=== PATIENT | male | born 1950 | race Caucasian/White ===

== ENCOUNTER 2019-08-02 05:55 | Inpatient (IN) | payer MEDICARE ==
[2019-08-02] VITALS (8 sets, daily range): BP systolic 118–143; BP diastolic 62–74
[~2019-08-02] VITALS: Ht 180.3 cm; Wt 79.1 kg
[~2019-08-02 05:55] MED LIST: ACET-841 PO; ALEV220T26 PO; ASPI1TAB PO; ASPI81TA85 PO; ATOR40TA75 PO; BISO5TAB5 PO; CALC-196 PO; CITRTAB18 PO; CO Q100C10 PO; CO Q200C10 PO; COUM1TAB17 PO; COUM2.5T17 PO; CYAN100050 PO; CYMB60CA3 PO; DIOV320T PO; DULO1CAP6 PO; FISH1360 PO; FISH1CAP23 PO; GLUC1TAB58 PO; LOSA100T8 PO; MAG PO; MULTCAP PO; MULTTAB4 PO; NAPR500T2 PO; OSTETAB13 PO; PANT40IN PO; PERC5TAB12 PO; PROL60SO SC; RANI150T14 PO; RECL5INJ2 IV; SPIR-10 PO; TYLE1000 PO; TYLE325T5 PO; VALS320T3 PO; VITA10002 PO; ZINC PO; [UNRECOGNIZED DRUG - OTHER] PO; reclast IV; vitamin D2 OR
[2019-08-02] MEDS ORDERED: LR 1,000 ML IV ONE (06:00)
[2019-08-02] MEDS ORDERED: BUPIVACAINE HCL 0.25% 30 ML VIAL As Ordered ONE (07:04)
[2019-08-02] MEDS ORDERED: BUPIVACAINE LIPOSOME/PF 1.3% 20ML VIAL (13.3MG/ML)(EXPAREL)(C9290 PER1MG) As Ordered ONE (07:05)
[2019-08-02] MEDS ORDERED: ROCURONIUM BROMIDE 50 MG/5 ML VIAL As Ordered ONE ×3 (08:07→10:50)
[2019-08-02] MEDS ORDERED: MIDAZOLAM INJ 2 MG/2 ML VIAL (J2250) As Ordered ONE (08:07)
[2019-08-02] MEDS ORDERED: dexameTHASONE 4 MG/ML 1ML VIAL (J1100) As Ordered ONE (08:07)
[2019-08-02] MEDS ORDERED: fentaNYL 250 MCG/5 ML INJECTION (J3010) As Ordered ONE (08:07)
[2019-08-02] MEDS ORDERED: ONDANSETRON 4MG/2ML VIAL (J2405) As Ordered ONE (08:07)
[2019-08-02] MEDS ORDERED: PROPOFOL 200 MG/20 ML VIAL As Ordered ONE (08:07)
[2019-08-02] MEDS ORDERED: LIDOCAINE 2% INJ 100 MG/5 ML SDV (FOR ANES.) As Ordered ONE (08:07)
[2019-08-02] MEDS ORDERED: GLYCOPYRROLATE INJ 0.2 MG/ML 2 ML VIAL As Ordered ONE (08:16)
[2019-08-02] MEDS ORDERED: PHENYLephrine HCL 500 MCG/5 ML (100MCG/ML) SYRINGE (J2370) As Ordered ONE ×2 (09:02→09:56)
[2019-08-02] MEDS ORDERED: ePHEDrine SULFATE 25 MG/5 ML(5MG/ML) SYRINGE As Ordered ONE (09:02)
[2019-08-02] MEDS ORDERED: SUGAMMADEX SODIUM 500 MG/5 ML VIAL (BRIDION) As Ordered ONE (10:06)
[2019-08-02] MEDS ORDERED: fentaNYL 100 MCG/2 ML INJECTION (J3010) As Ordered ONE (12:27)
[2019-08-02] MEDS ORDERED: ACETAMINOPHEN 1000MG 100ML IV BTL (OFIRMEV) (J0131 PER 10MG) As Ordered ONE (13:32)
[2019-08-02] MEDS ORDERED: NORCO, ANEXSIA 5/325MG TABLET (HYDROcodone/ACETAMINOPHEN) PO PRN (14:00)
[2019-08-02] MEDS ORDERED: ACETAMINOPHEN TAB 650MG DOSE (2X325MG) PO PRN (14:00)
[2019-08-02] MEDS ORDERED: MORPHINE 4 MG/ML 1ML VIAL/SYRINGE (J2270) IV PRN (14:00)
[2019-08-02] MEDS ORDERED: METOCLOPRAMIDE INJ 10MG/2ML VIAL (J2765) IV PRN (14:00)
[2019-08-02] MEDS ORDERED: ONDANSETRON 4MG/2ML VIAL (J2405) IV PRN ×2 (14:00→14:30)
[2019-08-02] MEDS ORDERED: KETOROLAC 30 MG/ML VIAL (J1885) IV PRN (14:00)
[2019-08-02] MEDS ORDERED: oxyCODONE 5MG TAB PO PRN (14:30)
[2019-08-02] MEDS ORDERED: fentaNYL 100 MCG/2 ML INJECTION (J3010) IV PRN (14:30)
[2019-08-02] MEDS ORDERED: PERCOCET 5MG/325MG TAB PO PRN (14:30)
[2019-08-02] MEDS ORDERED: LR 1,000 ML IV SCH (14:30)
--- NOTE | 2019-08-02 14:39 | REP ---
Clinical: Evaluate for pneumothorax. Comparison: 04/21/2015 Findings: Extensive subcutaneous emphysema noted bilaterally extending from the visualized upper abdomen through the thoracic inlet with findings to suggest pneumoperitoneum. The mediastinum and cardiac silhouette are relatively stable and hiatal hernia is again suggested. The lung jacob demonstrate chronic changes without obvious pneumothorax, consolidation or effusion. Skeletal structures demonstrate osteopenia and degenerative change. Impression: 1. Extensive diffuse subcutaneous emphysema extending into the thoracic inlet. 2. Suspected pneumoperitoneum. 3. No obvious pneumothorax. Electronically Signed by Ja Johnson MD 08/02/2019 02:31 P
[2019-08-02] MEDS: LR 1,000 ML IV SCH ×2 (15:20→21:51)
[2019-08-02] MEDS: DULoxetine 30 MG CAP (CYMBALTA) PO SCH (21:47)
[2019-08-03 02:00] VITALS: BP 135/64
[2019-08-03] MEDS: LR 1,000 ML IV SCH (02:09)
[2019-08-03 06:00] VITALS: BP 149/69
[2019-08-03 06:36] LABS: BASO % 0.2 % (0.0-1.0); EOS # 0.1 10^3/uL (0.0-0.5); EOS % 0.7 % (0.0-3.0); HEMATOCRIT 33.3 % (42.0-52.0); HEMOGLOBIN 10.7 g/dl (13.5-17.5); LYMPH # 1.4 10^3/uL (1.5-5.0); LYMPH % 15.8 % (24.0-44.0); MEAN CORPUSCULAR HEMOGLOBIN 29.5 pg (27.0-33.0); MEAN CORPUSCULAR HGB CONC 32.1 g/dl (32.0-36.5); MEAN CORPUSCULAR VOLUME 91.7 fl (80.0-96.0); MONO # 1.1 10^3/uL (0.0-0.8); MONO % 12.7 % (0.0-5.0); NEUTROPHILS # 6.3 10^3/uL (1.5-8.5); NEUTROPHILS % 70.3 % (36.0-66.0); PLATELET COUNT, AUTOMATED 169 10^3/uL (150-450); RED BLOOD COUNT 3.63 10^6/uL (4.30-6.10); WHITE BLOOD COUNT 8.9 10^3/uL (4.0-10.0)
[2019-08-03 07:01] LABS: ALBUMIN 2.8 GM/DL (3.2-5.2); ALT/SGPT 91 U/L (12-78); BILIRUBIN,TOTAL 0.5 MG/DL (0.2-1.0); BLOOD UREA NITROGEN 15 MG/DL (7-18); CALCIUM LEVEL 7.9 MG/DL (8.8-10.2); CARBON DIOXIDE LEVEL 31 MEQ/L (21-32); CHLORIDE LEVEL 105 MEQ/L (98-107); CREATININE FOR GFR 0.88 MG/DL (0.70-1.30); GLOMERULAR FILTRATION RATE > 60.0 (>42); GLUCOSE, FASTING 104 MG/DL (70-100); POTASSIUM SERUM 4.4 MEQ/L (3.5-5.1); SODIUM LEVEL 138 MEQ/L (136-145); TOTAL PROTEIN 6.3 GM/DL (6.4-8.2)
[2019-08-03] MEDS: hydroCHLOROthiazide 12.5 MG CAPSULE PO SCH (08:20)
[2019-08-03] MEDS: SPIRONOLACTONE 25 MG TAB PO SCH (08:20)
[2019-08-03] MEDS: LOSARTAN 50 MG TAB PO SCH (08:21)
[2019-08-03 10:00] VITALS: BP 118/56
[2019-08-03 14:00] VITALS: BP 150/64
[2019-08-03] MEDS: DULoxetine 30 MG CAP (CYMBALTA) PO SCH (20:08)
[2019-08-03 22:00] VITALS: BP 131/70
[2019-08-04 02:00] VITALS: BP 141/73
[2019-08-04 06:00] VITALS: BP 129/86
--- NOTE | 2019-08-04 07:40 | IPN ---
DATE OF SERVICE: 08/03/2019 HISTORY: The patient is now postop day #1 from a robotic-assisted laparoscopic repair of a large paraesophageal hiatal hernia with the creation of a Jack fundoplication as well. He has generally done quite well overnight. He was up to ambulate once last night. He denies any nausea or vomiting. He is having little discomfort and has taken no pain medications. Vital signs show that he has been afebrile since surgery. His pulse is in the 50s and 60s. His blood pressure is excellent. Intake and output show that he had 3650 in yesterday with 1100 of urine output. His Bucio catheter remains in place. PHYSICAL EXAMINATION: The patient is alert and oriented. His subcutaneous emphysema noted after surgery yesterday appears to be largely if not completely resolved. Heart exam shows a regular rhythm at about 60. The lungs show good breath sounds bilaterally. The abdomen is flat and his dressings are dry. He has some bowel sounds present. Laboratory studies today show white count of 9, hemoglobin of 11, hematocrit of 33 and platelet count of 169,000. His chemistry profile shows normal electrolytes with BUN of 15, creatinine 0.88 and a glucose of 104. He has very slight elevations of his AST and ALT. IMPRESSION: The patient is doing very well following his robotic-assisted laparoscopic repair of his paraesophageal hiatal hernia with a Jack fundoplication. PLAN: The patient will be started on clear liquids this morning. His Bucio catheter will be removed. He is encouraged to be up out of bed. If he tolerates the clear liquids early today, we will advance him to full liquids later in the day and if he tolerates those well today and is ambulatory without significant discomfort, then I anticipate he will be discharged home tomorrow morning.
[2019-08-04 08:14] VITALS: BP 154/87
[2019-08-04] MEDS: hydroCHLOROthiazide 12.5 MG CAPSULE PO SCH (08:14)
[2019-08-04] MEDS: LOSARTAN 50 MG TAB PO SCH (08:14)
[2019-08-04] MEDS: SPIRONOLACTONE 25 MG TAB PO SCH (08:14)
[2019-08-04 10:00] VITALS: BP 165/77
--- NOTE | 2019-08-04 22:32 | IPN ---
DATE: 08/04/2019 HISTORY: The patient is now postop day #2 from a robotic-assisted laparoscopic repair of a large incarcerated paraesophageal hiatal hernia with performance of a Jack fundoplication. He was started on clear liquids yesterday morning and advanced to full liquids later in the day. He has been tolerating the full liquids without any difficulty. He has had no dysphagia. He has been having flatus but has not yet had a bowel movement. He has been voiding well since removal of his Bucio catheter yesterday. Vital signs: Show that he has been afebrile for the past 24 hours with a pulse in the 60s generally, with good blood pressure and normal room air oxygen saturation. Intake and output show that yesterday he had 2400 in with 1150 out. His urine output during the day today has already been 1300 mL. PHYSICAL EXAMINATION: The patient is alert and oriented. Sclerae are anicteric. Heart exam shows a regular rate and rhythm. The lungs are clear with a very rare crackling sound in the chest wall from his tracking of carbon dioxide from the mediastinum. His abdomen is flat. His incisions are all clean and dry. He has active bowel sounds. IMPRESSION: The patient is doing very well now 48 hours postop from his robotic-assisted procedure. He is using no pain medications and is tolerating full liquids well. PLAN: The patient was counseled for discharge. He will continue all of his preadmission medications. I will not provide him with any prescription analgesics. I advised him that he can try advancing to a soft diet, but he should advance his diet very slowly and chew his food well and take his food with plenty of fluids. I advised him against any strenuous physical activity. He can shower as desired. I have asked him to follow up with me in the office in approximately 10 days to 2 weeks. He should call sooner for any problems.
--- NOTE | 2019-08-06 13:30 | RO ---
DATE OF PROCEDURE: 08/02/2019 PREOPERATIVE DIAGNOSIS: Incarcerated paraesophageal hiatal hernia with history of gastroesophageal reflux. POSTOPERATIVE DIAGNOSIS: Incarcerated paraesophageal hiatal hernia with history of gastroesophageal reflux. PROCEDURE PERFORMED: Robotic-assisted laparoscopic repair of incarcerated paraesophageal hernia with Jack fundoplication and gastropexy. SURGEON: Dr. Muñoz MANAGER SCIENCE: FAITH Davidson. Erika Grady was essential for port placement, change of instruments, and closure of incisions. ANESTHESIA: General. INDICATIONS FOR PROCEDURE: The patient is a 68-year-old man with a history of some shortness of breath, particularly with exertion who as part of his workup was found to have a large paraesophageal hiatal hernia. He has had a history of some gastroesophageal reflux as well. He is now for a robotic-assisted laparoscopic repair of his paraesophageal hiatal hernia. OPERATIVE PROCEDURE: The patient was brought to the operating room and placed on the table in a supine position. He was placed under general endotracheal anesthesia. A Bucio catheter was placed. He was moved into a low lithotomy position with the lower extremities held in padded leg holders. Thromboembolic deterrent stockings (TEDS) and sequentials were utilized. The patient's abdomen was prepped and draped in a sterile fashion. The four robotic trocars were placed. Initial entry to the abdomen was with a Veress needle in the left mid to upper abdomen. After a positive hanging drop test the abdomen was insufflated with carbon dioxide gas and the 8 mm ports were then placed effectively in a line across the abdomen. A 5 mm port was placed far on the right in the right upper quadrant for placement of an articulating liver retractor. The patient was tilted to a reverse Trendelenburg position. The patient cart of the [employer] Sherley Robot was brought into position and the camera port was docked. Targeting took place and instruments were placed through the three remaining robotic ports. The articulating liver retractor was placed through the high right upper quadrant port and placed to elevate the left lobe of the liver and this was connected to an articulating arm attached to the post of the Bookwalter retractor. I then moved to the control console and proceeded with the surgery. Examination in the left upper quadrant revealed a normal left lobe of the liver. The right lobe looked normal as well. The exposed portion of the distal body and prepyloric area of the stomach was normal. He was noted to have a dilated esophageal hiatus anterior to the proximal stomach. There was some omentum and stomach protruding up through this dilated hiatus. The fatty tissue was withdrawn back into the abdomen by gentle traction. The stomach was likewise reduced back into the abdomen. There were some adhesions of the fundus of the stomach up into the hernia. Initially the greater curve of the stomach was identified and the short gastric vessels were divided using the harmonic scalpel to free the greater curve all the way up to the esophageal hiatus. The left isabella of the diaphragm was partially exposed. The spleen was seen and protected. At the left side of the esophageal hiatus. The hernia sac was incised using the harmonic scalpel and portions of the hernia sac were withdrawn into the abdomen and freed from within the inferior mediastinum by dissection with the harmonic scalpel. Attention was then moved to the right side of the esophageal hiatus. The lesser omentum was opened into the lesser sac. The tissues along the anterior and medial stomach were prominent with fibrofatty tissue present. This medial aspect of the stomach was then freed by dissecting again with the harmonic scalpel to expose the right isabella of the diaphragm. Further dissection was necessary to remove additional portions of the hernia sac from within the inferior mediastinum and to free the fundus completely so that this could be withdrawn into the abdomen. Once the fundus was completely replaced within the abdomen fragments of the hernia sac were dissected off of the stomach and some of the fibrofatty tissue around the cardia of the stomach was also dissected free and this tissue was all set aside for later removal. The esophagus was freed extending superiorly up into the mediastinum, I would estimate a total of 7-8 cm to gain adequate mobility to bring the GE junction below the level of the diaphragm. The posterior aspect of the GE junction was freed and the crura of the diaphragm were both clearly identified. At this point a short segment of a quarter-inch Hayder drain was inserted into the abdomen and placed about the GE junction and used to elevate this area. A crural approximation was then performed beginning inferiorly and working superiorly. The initial several sutures were of 1-0 Ethibond but the slippery nature of the sutures made tying secure knots difficult. I therefore converted to using 2-0 silk sutures and carried this again superiorly to narrow the esophageal hiatus. Two sutures were placed anteriorly also to narrow the hiatus. The fundus of the stomach was then passed posterior to the GE junction and grasped on the right. A 46-Polish bougie was inserted by anesthesia and directed carefully into the stomach. The Jack fundoplication was performed with three simple sutures of 2-0 silk. The superior most suture also took a bite of the esophagus to fix the wrap in place. A wrap of approximately 2.5 cm in length was created. Sutures were placed to each side of the wrap to attach this to the undersurface of the diaphragm at the edge of the esophageal hiatus. The bougie was then removed. There did not appear to be any significant tension on the esophagus. In order to additionally fix the stomach within the abdomen two simple sutures of 2-0 silk were placed through the anterior wall of the distal body of the stomach approximately a centimeter apart, at this point the robot was undocked and withdrawn. I returned to the patient's side. The inflation pressure of the abdomen was reduced to 8 and the patient was returned to a flat position. The needle passing device of a Ty-Herring set was then used to pass the two sutures in the anterior wall of the stomach through a small incision high in the epigastrium and as the abdomen was deflated further the sutures were tied down to fix the anterior wall of the stomach to the anterior abdominal wall in a gastropexy. The abdomen was then completely deflated and all of the trocars were removed. The incisions were all closed with buried 5-0 Vicryl and Steri-Strips. Light dressings were applied. The patient tolerated the procedure well without apparent complication. He was awakened in the operating room and extubated and moved to the recovery room in stable condition.
== END 2019-08-04 14:18 | disposition home or self-care (01) | DRG 328 ==
LOC: M SDC 05:55 → M MSPAV 15:01 → M SDC 08-03 09:25 → M MSPAV 08-03 09:26
PROVIDERS: ADMIT Surgery; ATTEND Surgery
PROC: 0BQT4ZZ Repair Diaphragm, Percutaneous Endoscopic Approach (ICD-10-PCS; 2019-08-02)
PROC: 8E0W4CZ Robotic Assisted Procedure of Trunk Region, Percutaneous Endoscopic Approach (ICD-10-PCS; 2019-08-02)
PROC: 0DV44ZZ Restriction of Esophagogastric Junction, Percutaneous Endoscopic Approach (ICD-10-PCS; principal; 2019-08-02 07:30)
DX: K44.0 Diaphragmatic hernia with obstruction, without gangrene (principal); I10 Essential (primary) hypertension; E78.00 Pure hypercholesterolemia, unspecified; F41.9 Anxiety disorder, unspecified; F32.9 Major depressive disorder, single episode, unspecified; M81.0 Age-related osteoporosis without current pathological fracture; K21.9 Gastro-esophageal reflux disease without esophagitis; Z79.82 Long term (current) use of aspirin; Z79.899 Other long term (current) drug therapy

== ENCOUNTER → 2020-03-31 | Outpatient (CLI) | payer MEDICARE ==
[~2020-03-31] MED LIST changes: +FISH OIL TRIPLE1 CA1 PO; -FISH1CAP23 PO; +KP F1200 PO; +VENTAER INH; +VITA50005 PO
== END ==
LOC: M LABSMTC 09:44
PROVIDERS: ATTEND Anesthesiology
DX: Z01.818 Encounter for other preprocedural examination (principal); Z11.59 Encounter for screening for other viral diseases

== ENCOUNTER 2020-04-03 07:50 | Day surgery (SDC) | payer MEDICARE ==
[~2020-04-03] VITALS: Ht 180.3 cm; Wt 67.1 kg
[~2020-04-03 07:50] MED LIST changes: +LIDOCAINE 2% 100MG/5ML SDV (FOR ANES.) As Ordered ONE; +NS 1,000 ML IV ONE; +propofoL 500 MG/50 ML VIAL As Ordered ONE
[2020-04-03] MEDS ORDERED: LIDOCAINE 2% 100MG/5ML SDV (FOR ANES.) As Ordered ONE (09:59)
--- NOTE | 2020-04-03 10:16 | ROOR ---
Patient Name: Sandeep Sampson Procedure Date: 04/03/2020 8:57 AM Date of : 1950 Age: 69 Room: [facility] Gender: Male Note Status: Finalized Procedure: Upper GI endoscopy Indications: Abdominal bloating, Weight loss Providers: Simon Muñoz MD Referring MD: KILLIAN HAYNES MD Requesting Provider: Medicines: Monitored Anesthesia Care Complications: No immediate complications. Procedure: Pre-Anesthesia Assessment: - Prior to the procedure, a History and Physical was performed, and patient medications and allergies were reviewed. The patient is competent. The risks and benefits of the procedure and the sedation options and risks were discussed with the patient. All questions were answered and informed consent was obtained. Patient identification and proposed procedure were verified by the physician, the nurse and the gas station cashier in the procedure room. Mental Status Examination: alert and oriented. Prophylactic Antibiotics: The patient does not require prophylactic antibiotics. Prior Anticoagulants: The patient has taken no previous anticoagulant or antiplatelet agents. ASA Grade Assessment: III - A patient with severe systemic disease. After reviewing the risks and benefits, the patient was deemed in satisfactory condition to undergo the procedure. The anesthesia plan was to use monitored anesthesia care (MAC). Immediately prior to administration of medications, the patient was re-assessed for adequacy to receive sedatives. The heart rate, respiratory rate, oxygen saturations, blood pressure, adequacy of pulmonary ventilation, and response to care were monitored throughout the procedure. The physical status of the patient was re-assessed after the procedure. The Endoscope was introduced through the mouth, and advanced to the second part of duodenum. The upper GI endoscopy was accomplished without difficulty. The patient tolerated the procedure well. Findings: The Z-line was irregular. A medium amount of food (residue) was found on the greater curvature of the stomach. Evidence of a fundoplication was found in the cardia. The wrap appeared intact. This was traversed. The gastric antrum and pylorus were normal. The first portion of the duodenum and second portion of the duodenum were normal. Impression: - Z-line irregular. - A medium amount of food (residue) in the stomach. - A fundoplication was found. The wrap appears intact. - Normal antrum and pylorus. - Normal first portion of the duodenum and second portion of the duodenum. - No specimens collected. Recommendation: - Discharge patient to home. - Resume previous diet. - Do a gastric emptying study at appointment to be scheduled. Simon Muñoz MD Simon Muñoz MD 04/03/2020 10:16:33 AM Electronically signed by Simon Muñoz MD Number of Addenda: 0 Note Initiated On: 04/03/2020 8:57 AM Estimated Blood Loss: Estimated blood loss: none.
[2020-04-03 10:51] VITALS: BP 160/74
--- NOTE | 2020-04-03 10:56 | ROOR ---
Patient Name: Sandeep Sampson Procedure Date: 04/03/2020 8:58 AM Date of : 1950 Age: 69 Room: [facility] Gender: Male Note Status: Finalized Procedure: Colonoscopy Indications: Weight loss, Bloating Providers: Simon Muñoz MD Referring MD: KILLIAN HAYNES MD Requesting Provider: Medicines: Monitored Anesthesia Care Complications: No immediate complications. Procedure: Pre-Anesthesia Assessment: - Prior to the procedure, a History and Physical was performed, and patient medications and allergies were reviewed. The patient is competent. The risks and benefits of the procedure and the sedation options and risks were discussed with the patient. All questions were answered and informed consent was obtained. Patient identification and proposed procedure were verified by the physician, the nurse and the patient care technician in the procedure room. Mental Status Examination: alert and oriented. Prophylactic Antibiotics: The patient does not require prophylactic antibiotics. Prior Anticoagulants: The patient has taken no previous anticoagulant or antiplatelet agents. ASA Grade Assessment: III - A patient with severe systemic disease. After reviewing the risks and benefits, the patient was deemed in satisfactory condition to undergo the procedure. The anesthesia plan was to use monitored anesthesia care (MAC). Immediately prior to administration of medications, the patient was re-assessed for adequacy to receive sedatives. The heart rate, respiratory rate, oxygen saturations, blood pressure, adequacy of pulmonary ventilation, and response to care were monitored throughout the procedure. The physical status of the patient was re-assessed after the procedure. The Colonoscope was introduced through the anus and advanced to the cecum, identified by appendiceal orifice and ileocecal valve. The colonoscopy was somewhat difficult due to significant looping. The patient tolerated the procedure well. The quality of the bowel preparation was good. Findings: The perianal and digital rectal examinations were normal. Four sessile polyps were found in the proximal ascending colon and cecum. The polyps were 4 to 10 mm in size. These polyps were removed with a hot snare. Resection and retrieval were complete. The sigmoid colon revealed moderately excessive looping. Impression: - Four 4 to 10 mm polyps in the proximal ascending colon and in the cecum, removed with a hot snare. Resected and retrieved. - There was significant looping of the colon. Recommendation: - Discharge patient to home. - Resume previous diet. - Continue present medications. Simon Muñoz MD Simon Muñoz MD 04/03/2020 10:55:37 AM Electronically signed by Simon Muñoz MD Number of Addenda: 0 Note Initiated On: 04/03/2020 8:58 AM Estimated Blood Loss: Estimated blood loss: none.
== END 2020-04-03 10:54 | disposition home or self-care (01) ==
LOC: M OPP 07:50
PROVIDERS: ATTEND Surgery
DX: K63.5 Polyp of colon (principal); R63.4 Abnormal weight loss; K22.8 Other specified diseases of esophagus; R14.0 Abdominal distension (gaseous); Z98.890 Other specified postprocedural states

== ENCOUNTER → 2020-04-27 | Outpatient (CLI) | payer MEDICARE ==
[~2020-04-27] MED LIST changes: +E-Z-GAS II EFFERVESCENT PACKET (SODIUM BICARB./CITRIC ACID/SIMETHICONE) As Ordered ONE; +E-Z-HD 98% w/w 340GM SUSP BTL As Ordered ONE; +E-Z-PAQUE 96% w/w SUSP 176GM BTL As Ordered ONE; -LIDOCAINE 2% 100MG/5ML SDV (FOR ANES.) As Ordered ONE; -NS 1,000 ML IV ONE; -propofoL 500 MG/50 ML VIAL As Ordered ONE
--- NOTE | 2020-04-27 16:01 | REP ---
UPPER GI SINGLE CONTRAST The procedure was performed under the direct supervision of Dr. Haney. The images were reviewed with Dr. Haney. The excellence coach film shows no organomegaly or pathological masses. The test gas pattern is nonspecific. The patient is status post left hip arthroplasty. Liquid barium was administered in the erect and prone oblique positions. The oral and pharyngeal stages of deglutition are unremarkable. During esophageal transport there are tertiary waves demonstrated. There is no esophagitis stricture mucosal ring or hiatal hernia. The patient is status post Jack fundoplication. Gastroesophageal reflux is not demonstrated on this examination. Within the stomach there is a large amount of residual ingested material which limits evaluation. There is markedly delayed gastric emptying as contrast did not empty into the duodenum until after an hour. The stomach is grossly normal. The duodenum is grossly normal. The visualized portion of the proximal small bowel appears normal in course and caliber. Impression: 1. Tertiary waves. 2. There is a large amount of residual ingested material within the stomach with markedly delayed gastric emptying as contrast did not empty into the duodenum until after hour. 1.7 minutes of fluoroscopy time was utilized for this procedure. Electronically Signed by LENKA Ramirez 04/27/2020 03:14 P Electronically Signed by Markus Haney MD 04/27/2020 03:51 P
== END ==
LOC: M RAD 07:52
PROVIDERS: ATTEND Surgery
DX: R63.4 Abnormal weight loss (principal); R14.0 Abdominal distension (gaseous); K30 Functional dyspepsia

== ENCOUNTER → 2020-05-11 | Outpatient (CLI) | payer MEDICARE ==
[~2020-05-11] MED LIST changes: -E-Z-GAS II EFFERVESCENT PACKET (SODIUM BICARB./CITRIC ACID/SIMETHICONE) As Ordered ONE; -E-Z-HD 98% w/w 340GM SUSP BTL As Ordered ONE; -E-Z-PAQUE 96% w/w SUSP 176GM BTL As Ordered ONE
--- NOTE | 2020-05-11 10:47 | REP ---
NUCLEAR GASTRIC EMPTYING SCAN: Following the oral administration of 1.04 millicuries technetium 99m sulfur colloid in two scrambled eggs in 6 ounces of water, multiple images of the upper abdomen are performed in the anterior and posterior projections for 90 minutes. The gastric activity is measured. There is no gastric emptying at 90 minutes. IMPRESSION: There is no gastric emptying during 90 minutes of scanning. The findings suggest gastroparesis. Electronically Signed by Markus Haney MD 05/15/2020 06:25 P
== END ==
LOC: M RAD 07:40
PROVIDERS: ATTEND Surgery
DX: R63.4 Abnormal weight loss (principal); R14.0 Abdominal distension (gaseous); K30 Functional dyspepsia
CPT/HCPCS: 78264; A9541

== ENCOUNTER → 2020-08-26 | Outpatient (CLI) | payer MEDICARE ==
[~2020-08-26] MED LIST changes: -ASPI81TA85 PO; +ASPI81TA86 PO; +METO5TAB2 PO; +VITA500C19 PO
== END ==
LOC: M LABSMTC 11:23
PROVIDERS: ATTEND Anesthesiology
DX: Z01.812 Encounter for preprocedural laboratory examination (principal); Z20.828 Contact with and (suspected) exposure to other viral communicable diseases
CPT/HCPCS: C9803; U0003

== ENCOUNTER 2020-08-30 12:50 | Day surgery (SDC) | payer MEDICARE ==
[~2020-08-30] VITALS: Ht 177.8 cm; Wt 68.5 kg
[~2020-08-30 12:50] MED LIST changes: +NS 1,000 ML IV SCH
[2020-08-30] MEDS ORDERED: MIDAZOLAM INJ 2MG/2ML VIAL (J2250 PER 1MG) As Ordered ONE ×2 (14:06→14:07)
[2020-08-30] MEDS: MIDAZOLAM INJ 2MG/2ML VIAL (J2250 PER 1MG) IV PRN ×2 (14:30→14:32)
[2020-08-30] MEDS ORDERED: LIDOCAINE VISCOUS 2% SOLN 15ML UDC As Ordered ONE (14:53)
[2020-08-30] MEDS ORDERED: MIDAZOLAM INJ 2MG/2ML VIAL (J2250 PER 1MG) IV ONE (15:15)
[2020-08-30] MEDS ORDERED: LIDOCAINE VISCOUS 2% SOLN 15ML UDC PO ONE (15:15)
[2020-08-30 15:25] VITALS: BP 125/64
--- NOTE | 2020-09-14 10:20 | T-ECHO ---
DATE OF PROCEDURE: 08/30/2020 REFERRING PHYSICIAN: Danny Fowler M.D. INDICATIONS: Mitral valve disorders (non-rheumatic) with mitral regurgitation. PREPROCEDURE DIAGNOSIS: Mitral valve disorders (non-rheumatic) with mitral regurgitation. POSTPROCEDURE DIAGNOSIS: Mitral valve prolapse with moderately-severe mitral regurgitation. PRINCIPAL CLINICAL FINDINGS: Mitral valve prolapse with moderately-severe mitral regurgitation. PROCEDURE PERFORMED BY: Danny Fowler M.D. ACCESS LEAD: None. PROCEDURE PERFORMED: Transesophageal echocardiogram. INTRAVENOUS (IV) SEDATION: Midazolam 4 mg IV. COMPLICATIONS: None. DESCRIPTION OF PROCEDURE: Rhythm was sinus. Patient received viscous lidocaine to gargle and swallow. He received a total of midazolam 4 mg IV for sedation. The patient tolerated the procedure well without complications. Esophageal intubation was accomplished without difficulty using a Fisher 3D transesophageal echocardiogram probe. Transgastric views were technically difficult. Visualization of the descending thoracic aorta was technically difficult. The aortic arch distal portion appeared normal. The left ventricle appeared normal in size and systolic function without regional wall motion abnormalities. Left ventricle ejection fraction was 60% by visual estimate. Right ventricle appeared normal in size and systolic function. Atrial septum was intact anatomically and by color flow Doppler. No mass or thrombi were seen within the atria or their branches. The left atrium was dilated. The right atrium was probably normal in size. The aortic valve was 3-cuspid with mild focal thickening and focal calcific deposits. No aortic stenosis or regurgitation. Myxomatous mitral leaflets with mild prolapse of both the anterior and posterior mitral leaflets. Multiple mitral regurgitation jets were present. The total amount of mitral regurgitation observed appeared to be moderately-severe 3+/4. No systolic flow reversal in the left upper pulmonary vein by pulse wave Doppler. No broken chordae or frail segments of the mitral leaflets. No vegetations were seen in any of the cardiac valves. Mild tricuspid valve prolapse was present. Mild tricuspid regurgitation. Pulmonic valve was moderately technically difficult to visualize. Mild pulmonic regurgitation. No pericardial effusion. CONCLUSIONS: 1. 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 No broken chordae or frail segments of the mitral leaflets. Moderately-severe mitral regurgitation. 2. 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 Mild tricuspid regurgitation. 3. Left atrial dilatation. 4. Normal left ventricle size and systolic function. Left ventricular ejection fraction (LVEF) 60% by visual estimate. [facility]
== END 2020-08-30 15:36 | disposition home or self-care (01) ==
LOC: M OPP 12:50
PROVIDERS: ATTEND Internal Medicine Cardiovascular Disease
DX: I34.1 Nonrheumatic mitral (valve) prolapse (principal); Z79.82 Long term (current) use of aspirin; Z79.899 Other long term (current) drug therapy
CPT/HCPCS: 93312; 93320; 93325; J2250

== ENCOUNTER → 2024-07-05 | Outpatient (CLI) | payer MEDICARE ==
[~2024-07-05] MED LIST changes: +CYAN-1 PO; -CYAN100050 PO; +ERGO500029 PO; -NS 1,000 ML IV SCH; -VITA50005 PO
== END ==
LOC: M PLAIMG 09:20
PROVIDERS: ATTEND Physician Assistant
DX: I34.1 Nonrheumatic mitral (valve) prolapse (principal)